=== PATIENT | male | born 1995 | race Caucasian/White ===

== ENCOUNTER 2016-07-13 00:58 | Emergency (ER) | payer OTHER ==
[2016-07-13] MEDS ORDERED: METOCLOPRAMIDE HCL INJ/PF 10 MG/2 ML SDV IV ONE (02:36)
[2016-07-13] MEDS ORDERED: FAMOTIDINE INJ/PF 20 MG/2 ML SDV IV ONE (02:36)
[2016-07-13] MEDS ORDERED: DIPHENHYDRAMINE HCL 50 MG/ML VIAL IV ONE (02:36)
[2016-07-13] MEDS ORDERED: NORMAL SALINE 1000 ML 1,000 ML IV PRN (02:36)
--- NOTE | 2016-07-13 02:37 | ER Document Report ---
ED GI/ - General Chief Complaint: Nausea/Vomiting/Diarrhea Stated Complaint: VOMITING, DIFFICULTY BREATHING Time seen by provider: 02:37 Mode of Arrival: Ambulatory Information source: Patient TRAVEL OUTSIDE OF THE [place] IN LAST 30 DAYS: No - HPI Patient complains to provider of: Abdominal pain, Vomiting Onset: Other - Months Timing/Duration: Intermittent, Waxing and waning Quality of pain: Achy, Cramping Severity at maximum: Moderate Severity in ED: Moderate Pain Level: 3 Location: Epigastric Associated symptoms: Nausea, Vomiting Exacerbated by: Food Relieved by: Denies Similar symptoms previously: Yes Recently seen / treated by doctor: Yes Notes: 07/13/16 06:04 Patient is a 21-year-old male presenting to the emergency room complaining of nausea and vomiting that's been going on intermittently for the past few months , he reports a history of some vomiting when he was a child, but that seemed to go away, over the past week he feels as though his symptoms are getting worse, he's been having diarrhea, epigastric abdominal pain and unable to tolerate any by mouth intake, he reports today he noticed a small amount of blood in his vomit as well, patient reports he was seen at [facility] on 2 occasions over the past week, had some blood work done and was told to follow-up in 2 weeks, he was placed on Zofran, Carafate, Zantac and Nexium, none of which are helping his symptoms, patient denies any previous abdominal surgeries, he does smoke cigarettes - Related Data Allergies/Adverse Reactions: No Known Allergies Allergy (Verified 07/13/16 01:04) Past Medical History - General Information source: Patient, Parent - Social History Smoking Status: Current Every Day Smoker Chew tobacco use (# tins/day): No Frequency of alcohol use: None Drug Abuse: None Family History: Reviewed & Not Pertinent Renal/ Medical History: Denies: Hx Peritoneal Dialysis Review of Systems - Review of Systems Constitutional: No symptoms reported EENT: No symptoms reported Cardiovascular: No symptoms reported Respiratory: No symptoms reported Gastrointestinal: See HPI Genitourinary: No symptoms reported Male Genitourinary: No symptoms reported Musculoskeletal: No symptoms reported Skin: No symptoms reported Hematologic/Lymphatic: No symptoms reported Neurological/Psychological: No symptoms reported -: Yes All other systems reviewed and negative Physical Exam - Vital signs Vitals: Temp Pulse Resp BP Pulse Ox 98.7 F 75 16 132/76 H 99 07/13/16 01:02 07/13/16 01:02 07/13/16 01:02 07/13/16 01:02 07/13/16 01:02 Interpretation: Normal - General General appearance: Appears well, Alert - HEENT Head: Normocephalic, Atraumatic Eyes: Normal Pupils: PERRL - Respiratory Respiratory status: No respiratory distress Chest status: Nontender Breath sounds: Normal Chest palpation: Normal - Cardiovascular Rhythm: Regular Heart sounds: Normal auscultation Murmur: No - Abdominal Inspection: Normal Distension: No distension Bowel sounds: Normal Tenderness: Tender - Epigastric Organomegaly: No organomegaly - Back Back: Normal, Nontender - Extremities General upper extremity: Normal inspection, Nontender, Normal color, Normal ROM , Normal temperature General lower extremity: Normal inspection, Nontender, Normal color, Normal ROM , Normal temperature, Normal weight bearing. No: Lukasz's sign - Neurological Neuro grossly intact: Yes Cognition: Normal Orientation: AAOx4 Skye Coma Scale Eye Opening: Spontaneous Skye Coma Scale Verbal: Oriented Skye Coma Scale Motor: Obeys Commands Skye Coma Scale Total: 15 Speech: Normal Motor strength normal: LUE, RUE, LLE, RLE Sensory: Normal - Psychological Associated symptoms: Normal affect, Normal mood - Skin Skin Temperature: Warm Skin Moisture: Dry Skin Color: Normal Course - Re-evaluation Re-evalutation: 07/13/16 06:06 Vital signs are stable, laboratory evaluation shows mild leukocytosis, otherwise relatively unremarkable, CT scan shows no abnormalities, even though patient stated he's been having intractable vomiting and diarrhea for the past week, we did not observe him to vomit once while in the emergency room, he was also unable to provide a stool sample for testing in the 5 hours that he's been in the emergency room, he does report feeling much better after IV fluids and medication, he is tolerating a GI cocktail/by mouth challenge, patient will be discharged with instructions for follow-up, he was provided with a copy of all of his labs as well as his CT scan on a CD for follow-up, and advised to return if symptoms worsen, patient and mother at bedside acknowledge understanding and agreement with this plan - Vital Signs Vital signs: Temp Pulse Resp BP Pulse Ox 98.7 F 75 16 132/76 H 99 07/13/16 01:02 07/13/16 01:02 07/13/16 01:02 07/13/16 01:02 07/13/16 01:02 - Laboratory Result Diagrams: 07/13/16 03:00 07/13/16 03:00 Laboratory results interpreted by me: 07/13/16 07/13/16 07/13/16 03:00 03:00 03:40 WBC 14.1 H Absolute Neutrophils 10.5 H Sodium 146.5 H Calcium 10.7 H Total Bilirubin 1.9 H Albumin 5.3 H Urine Protein 100 H Urine Ketones 20 H - Diagnostic Test Radiology reviewed: Image reviewed, Reports reviewed Discharge - Discharge Clinical Impression: Nausea and vomiting Qualifiers: Vomiting type: unspecified Vomiting Intractability: non-intractable Qualified Code(s): R11.2 - Nausea with vomiting, unspecified Condition: Stable Disposition: HOME, SELF-CARE Instructions: Antinausea Medication ([facility]), Diarrhea, Nonspecific ([facility]), Intravenous (IV) Fluids ([facility]), Vomiting ([facility]), Gastroenterology Additional Instructions: Follow up with your primary care provider and a woods rider in the next 2 -3 days. Return to the nearest emergency room immediately if her symptoms worsen, or fail to improve, or if you have any additional concerns. Prescriptions: Metoclopramide HCl [Reglan 10 mg Tablet] 1 - 2 tab PO ASDIR PRN #25 tablet PRN Reason:
[2016-07-13 03:21] LABS: ABSOLUTE BASOPHILS # (AUTO) 0.1 10^3/uL (0.0-0.2); ABSOLUTE LYMPHOCYTES (AUTO) 2.4 10^3/uL (0.5-4.7); ABSOLUTE MONOCYTES (AUTO) 1.1 10^3/uL (0.1-1.4); ABSOLUTE NEUT (AUTO) 10.5 10^3/uL (1.7-8.2); BASOPHILS % (AUTO) 0.5 % (0-2); EOSINOPHILS % (AUTO) 0.2 % (0-6); HEMATOCRIT 43.5 % (37.9-51.0); HEMOGLOBIN 15.2 g/dL (13.5-17.0); HGB HCT DIFFERENCE 2.1; LYMPHOCYTES % (AUTO) 17.1 % (13-45); MEAN CORPUSCULAR HEMOGLOBIN 30.8 pg (27.0-33.4); MEAN CORPUSCULAR VOLUME 88 fl (80-97); MONOCYTES % (AUTO) 7.5 % (3-13); RED BLOOD COUNT 4.93 10^6/uL (4.35-5.55); RED CELL DISTRIBUTION WIDTH 13.1 % (11.5-14.0); SEGMENTED NEUTROPHILS % (AUTO) 74.7 % (42-78); WHITE BLOOD COUNT 14.1 10^3/uL (4.0-10.5)
[2016-07-13 03:33] LABS: ALANINE AMINOTRANSFERASE 45 U/L (21-72); ALBUMIN 5.3 g/dL (3.5-5.0); ALKALINE PHOSPHATASE 73 U/L (38-126); ASPARTATE AMINO TRANSFERASE 38 U/L (17-59); BILIRUBIN,TOTAL 1.9 mg/dL (0.2-1.3); BLOOD UREA NITROGEN 17 mg/dL (7-20); CALCIUM 10.7 mg/dL (8.4-10.2); CREATININE RESULT 0.87 mg/dL (0.52-1.25); GLUCOSE 105 mg/dL (75-110); LIPASE 135.6 U/L (23-300); TOTAL PROTEIN 8.1 g/dL (6.3-8.2)
[2016-07-13 03:40] LABS: ANION GAP 18 (5-19); CARBON DIOXIDE 26 mmol/L (22-30); CHLORIDE 103 mmol/L (98-107); POTASSIUM 3.7 mmol/L (3.6-5.0); SODIUM 146.5 mmol/L (137-145)
[2016-07-13 04:07] LABS: APPEARANCE,URINE CLEAR; BILIRUBIN,URINE NEGATIVE (NEGATIVE); GLUCOSE, URINE NEGATIVE (NEGATIVE); KETONES,URINE 20 mg/dL (NEGATIVE); LEUKOCYTE ESTERASE,URINE NEGATIVE (NEGATIVE); NITRITE,URINE NEGATIVE (NEGATIVE); PROTEIN,URINE 100 mg/dL (NEGATIVE); URINE SPECIFIC GRAVITY 1.035; UROBILINOGEN,URINE NEGATIVE mg/dL (<2.0)
[2016-07-13] MEDS ORDERED: METOCLOPRAMIDE HCL ORAL SOLN 10 MG/10 ML UDCUP PO ONE (05:08)
[2016-07-13] MEDS ORDERED: LIDOCAINE 2% VISCOUS SOLN 20 ML UDCUP PO ONE (05:08)
[2016-07-13] MEDS ORDERED: MAG HYDROX/AL HYDROX/SIMETH SUSP 30 ML UDCUP PO ONE (05:08)
[2016-07-13 06:57] VITALS: BP 122/72
== END 2016-07-13 06:30 | disposition home or self-care (01) ==
LOC: ER 00:58
DX: K92.0 Hematemesis (principal); R19.7 Diarrhea, unspecified; R10.13 Epigastric pain; F17.210 Nicotine dependence, cigarettes, uncomplicated; D72.829 Elevated white blood cell count, unspecified
CPT/HCPCS: 99284; 96361; 96374; 96375; 36415; 83690; 85025; 80053; 81001; 74177; J1200; J3490; J2765; J7030; S0028